=== PATIENT | female | born 1955 | race Caucasian/White ===

== ENCOUNTER 2017-01-06 11:58 | Inpatient (IN) | payer MEDICARE ==
--- NOTE | ~2017-01-06 | PR ---
[place], [place] PROGRESS NOTE NAME: NEVAEH NOLEN UNIT #: [id number] ROOM: 312 DOCTOR: LULU VARGAS MD BIRTHDATE: [birth year] DOS: 01/20/2017 CHIEF COMPLAINT: "Dr. Vargas, I didn't sleep at all." SUMMARY OF THE VISIT: The patient was interviewed in the dining area. She sat in a Jessica chair eating her breakfast. She was quiet during the entire time I interacted with other residents; however, as I approached her, she began to call out. This time, though very softly, but nonetheless call out stating that she did not sleep and is not feeling well. Nurses report that she slept approximately 8 hours. She though did have a poor day yesterday as she was much more loud and yelling out and was harder to redirect. She was not able to receive the Risperdal Consta dose due to lack of availability. MENTAL STATUS: She is alert and oriented with significant time gaps. Mood does seem to be somewhat better. There is still lability noted. There is no auditory or visual hallucinations noted. Short term memory has gaps, otherwise she is intact. PLAN: At this point in time, I am going to go ahead and switch her from Risperdal Consta to Invega Sustenna. This will require less injections overall and is slightly more potent with less potential side effects. I will then discontinue Risperdal Consta in lieu of Invega Sustenna 234 mg IM today. Plan to do a secondary loading dose next week and engage in individual and leblanc milieu activity with the plan to return to [facility] when stable. LULU VARGAS MD CM:PNTRANS LULU VARGAS MD 01/20/1744 interface
--- NOTE | ~2017-01-06 | PR ---
[place], [place] PROGRESS NOTE NAME: NEVAEH NOLEN UNIT #: [id number] ROOM: 312 DOCTOR: LLUU STACY MD BIRTHDATE: [birth year] DOS: 01/15/2017 INTERVAL NOTE CHIEF COMPLAINT: "Oh Dr. Stacy, they are breaking my knee caps, they are going to push me down on the floor, they are going to choke me." SUMMARY OF THE VISIT: The patient was interviewed in her room. She was resting in bed but awake. Tears were noted at the edges of her eyes. Upon approach, she became very agitated and anxious with multiple complaints of paranoia. Attempts to redirect were only met with her further escalating and becoming even more hysterical. The patient did report that she did not sleep last night, which is in melendrez contrast to previous nights. MENTAL STATUS: She is alert and oriented to person, place, and approximate to time. Mood does seem to be very labile. Affect is inappropriate. There is a great deal of psychosis and mood lability noted. Memory has gaps. PLAN: Most recently, I discontinued the Remeron in lieu of Trintellix, which seems to have adversely affected her sleep pattern. Also, she had done better on higher dose Ativan than she did on the lower dose. I will go ahead and discontinue Trintellix and put her back on the Remeron 15 mg at bedtime. Rather than utilizing Ativan as a short-acting benzodiazepine, I will discontinue it and start Klonopin 1 mg t.i.d. to act as a mood stabilizer and anti-anxiety agent and to also aid sleep. We will engage her in individual and leblanc milieu activity as much as possible returning to [facility] when stable. LULU STACY MD CM:PNTRANS [phone] LULU STACY MD 01/15/17 1115 interface
--- NOTE | ~2017-01-06 | PR ---
[place], [place] PROGRESS NOTE NAME: NEVAEH NOLEN UNIT #: [id number] ROOM: 312 DOCTOR: LULU STACY MD BIRTHDATE: [birth year] DOS: 01/13/2017 CHIEF COMPLAINT: "I'm sleepy, help me doctor." SUMMARY OF THE VISIT: The patient was interviewed as she actually laid in bed. This is the first time in days that I have actually seen her lying in bed. She reported that she is very tired but still has some delusional symptoms present complaining that people are out to get her, will smother her or poison her. She has taken at least 3 doses of the Risperdal without incident and I do believe I have had her on Risperdal in the past while a resident of [facility]. Given the fact that she is still as episodically noncompliant with oral medication, I will go ahead and initiate Decanoate prep at this time. MENTAL STATUS: She is alert and oriented with significant time gaps. Mood still is labile. Affect is inappropriate. She is anxious and fretful and very delusional. Memory has significant gaps. PLAN: I will discontinue the Risperdal to half as this is just yet another medication for her to refuse. I will load with Risperdal Consta 25 mg IM now and every 2 weeks, monitor for risk, benefit, engage in individual and leblanc milieu activity with the plan to return to [facility] when psychiatrically stable. LULU STACY MD CM:PNTRANS [id number] LULU STACY MD 01/13/17 1027 interface
--- NOTE | ~2017-01-06 | PR ---
[place], [place] PROGRESS NOTE NAME: NEVAEH NOLEN UNIT #: [id number] ROOM: 312 DOCTOR: LULU STACY MD BIRTHDATE: [birth year] DOS: 01/11/2017 CHIEF COMPLAINT: "I am afraid they are going to choke me and kill me." SUMMARY OF THE VISIT: The patient was interviewed once again as she sat in the quiet room in her Jessica chair. Upon approach, she engaged at first in normal conversation and then eventually trailed into very winning near tearful conversation; however, she did redirect more easily and was able to be brought back into normal conversation more rapidly. She continues to be markedly delusional and paranoid and believes that staff and other patients here are going to hurt her. They will smother her or cause her to choke on her food or medications. As mentioned previously, she began to cry, but very quickly stopped and was able to reengage. Nurses' report; however, she is episodically noncompliant with her medicines and has not been consistently taking her Vraylar. MENTAL STATUS: She is alert and oriented with time gaps. Mood does seem to be somewhat trending towards improvement. Affect at times is more appropriate, although she makes is this with very inappropriate affect and behavior. She remains grossly delusional and paranoid. Memory has gaps. PLAN: Given the fact that she is episodically noncompliant with the Vraylar, I will discontinue it in lieu of Risperdal M-Tab 1 mg twice daily. I will instruct the staff that they may mix this with some type of fluid. Once I know she is tolerating this well, I will go ahead and start loading her with either Risperdal Consta or Invega Sustenna. I will increase her Exelon patch from 9.5 mg daily to 13.3 mg daily in order to maximize potential benefits. We will continue to engage her in individual and leblanc milieu activity with the ultimate plan to return back to [facility] when psychiatrically stable. LULU STACY MD CM:PNTRANS [id number] LULU STACY MD 01/11/17 0953 interface
--- NOTE | ~2017-01-06 | DS ---
[place], [place] DISCHARGE SUMMARY [id number] #: [id number] ROOM: 312 DOCTOR: LULU STACY MD BIRTHDATE: [birth year] DOS: 01/21/2017 CHIEF COMPLAINT: "Morning." HISTORY OF PRESENT ILLNESS: This is a 61-year-old white female, who is well known to me from her extended stay at [facility] in [place], [place]. The patient is admitted now to the [facility] due to a significant alteration in her mental status including severe agitation and aggression. The patient has a lengthy history of schizoaffective disorder and has had multiple medications adjustment during her lengthy stay at [facility]. She now is reporting extreme hallucinations and mood lability. She has been very volatile and agitated. She has been throwing things around and been physically aggressive toward staff and other residents. Because of this severe change in her behavior and significant psychosis, it was felt that inpatient stabilization was warranted. PAST MEDICAL HISTORY: Remarkable for diabetes, hypertension, osteoporosis, history of frequent UTIs, and a lengthy psychiatric history. SUMMARY OF HOSPITAL COURSE: The patient was admitted to the unit where her medication regimen was revised. Her Depakote and Nuedexta were discontinued as was Zyprexa. Exelon capsules were switched to Exelon patch. She was started on Vraylar 1.5 mg at bedtime. During the early part of her stay, it was characterized by her excessive yelling and irritability. Attempts to redirect were met with her further becoming agitated and aggressive. She was also episodically noncompliant with her medication making management very difficult. She often would require p.r.n. intervention and then have only brief benefit from this. Because of her lack of compliance, the Vraylar was stopped and she was started on Risperdal M-Tab. After tolerating several doses of the Risperdal M-Tab, she was loaded with Risperdal Consta 25 mg IM. This did seem to have a positive effect on her as did the initiation of Klonopin. Klonopin was started at a dose of 0.5 in the morning and 1 mg at night and gradually increased and adjusted to where it was 0.5 twice a day and 3 mg at bedtime. The 3 mg at bedtime dose did seem to significantly impact positively on her sleep patterns. Additionally, it did seem to calm her because she required a great deal of support and redirection and with the Klonopin on board, this was required much less. She tolerated this medication regimen well, but still continued to have excessive mood lability and inappropriate behavior. Efforts were made to try to reload her with some Risperdal, but due to its lack of availability, this was not done. Instead, it was decided that she would benefit from Invega Sustenna given the fact that the injections were less frequent and the potency was greater. She was given Invega Sustenna 234 mg IM and monitored over the next 24 hours for risk and benefits. She exhibited no extrapyramidal symptoms, tardive dyskinesia, sedation or somnolence from the Invega Sustenna. At this point in time, she did seem to be markedly improved from admission and it was felt that she could return back to [facility] where both Russ Toscano, nurse practitioner and myself will follow her. MENTAL STATUS AT DISCHARGE: The patient was alert and oriented to person, place and very approximate to time. Mood was strongly trending towards euthymia. Affect was much more appropriate. She was much more redirectable. She was no [place], [place] DISCHARGE SUMMARY NAME: NEVAEH NOLEN UNIT #: [id number] ROOM: 312 DOCTOR: LULU STACY MD BIRTHDATE: [birth year] longer yelling out or agitated. Well she complained of certain items, she redirected more readily. There was no hypomania or william. There is no overt auditory or visual hallucinations. No command hallucinations. No voiced delusions or paranoia. Memory for short term events had some gaps. Otherwise, she was fairly well intact. DIAGNOSES: Schizoaffective disorder and Alzheimer's dementia, early onset. PLAN: All of her prescriptions have been escribed to [facility]. Klonopin has been printed and will be sent with her. I will follow her upon her return to [facility]. LULU STACY MD CM:DISCHARG 9 7 LULU STACY MD 01/21/17917 interface
--- NOTE | ~2017-01-06 | PR ---
[place], [place] PROGRESS NOTE NAME: NEVAEH NOLEN UNIT #: [id number] ROOM: 312 DOCTOR: LULU STACY MD BIRTHDATE: [birth year] DOS: 01/19/2017 CHIEF COMPLAINT: "Dr. Stacy, come help me." SUMMARY OF THE VISIT: The patient was interviewed in her room. She was resting quietly in bed. As I was talking to a male patient in the mike, she did quietly call out to me, but when I put my hand up to signal her to stop, she very quickly redirected herself and stopped. Even when I entered her room and engaged her in conversation, she did continue to complain of not sleeping, continuing not to feel well, but it was a very subdued, soft, quiet response and not the hysterical screaming that she had done previously. Nurses report that yesterday she had a very good day and for the most part engaged in groups and therapy well without the whining and screaming that she had been doing so frequently. She does seem to be tolerating the current medication regimen well. MENTAL STATUS: She is alert and oriented to person, place, and approximate to time. Mood does seem to be trending towards euthymia. Affect is more appropriate. There is still some mood lability noted, but she is redirectable. There are no overt auditory or visual hallucinations, although she voices that she is experiencing these. Memory is fairly well intact. PLAN: I will go ahead and load her with another 12.5 mg of Risperdal Consta today and change the order for the Risperdal Consta to be 37.5 mg IM starting on 02/01/2017 and every 14 days thereafter. I may consider switching her from Risperdal Consta to Invega Sustenna so that she has less frequent injections. We will continue to engage her in individual and leblanc milieu activity, returning to [facility] when psychiatrically stable. LULU STACY MD CM:PNTRANS [id number] LULU STACY MD 01/19/17 1025 interface
--- NOTE | ~2017-01-06 | PR ---
[place], [place] PROGRESS NOTE NAME: NEVAEH NOLEN UNIT #: [id number] ROOM: 312 DOCTOR: WATSON PINA RUSS BIRTHDATE: [birth year] DOS: 01/16/2017 CHIEF COMPLAINT: "Russ, I am not sleeping. I needed Ativan." SUMMARY OF VISIT: The patient was assessed in the dining room, where she immediately started calling my name out as soon as I entered the dining room, even though I was assessing other patients. Once I turned my attention to her, she was telling me that she has not slept since she has been here. This is not true. She has been sleeping actually quite well. She asked for Ativan since she has been on Ativan for quite some time. We have just recently changed her over to Klonopin. She is a little bit more agitated, anxious today. MENTAL STATUS: Alert and oriented to person, place, approximate time. Mood still labile. Affect is inappropriate. No auditory or visual hallucinations, delusions, paranoia, william or hypomania, mood lability continued at times, however. PLAN: We did discontinue her Ativan yesterday and put her on Klonopin 1 mg t.i.d. I am going to go ahead and keep the Klonopin at 1 mg once in the morning and once in the afternoon and then increase the nighttime dose to 2 mg to try to aid in sleep, but also act as an antianxiety medication with longer half-life. We will continue to try to engage in individual and leblanc milieu therapy with the plan to discharge back to [facility] once stable. RUSS PINA CNP CM:PNTRANS [phone] [id number] WATSON PINA 01/16/17 110 interface
--- NOTE | ~2017-01-06 | WRIGHTHP ---
[place], [place] PATIENT HISTORY AND PHYSICAL EXAM NAME: NEVAEH NOLEN UNIT #: [id number] ROOM: 312 DOCTOR: LULU STACY MD BIRTHDATE: [birth year] DOS: 01/07/2017 CHIEF COMPLAINT: "Morning." HISTORY OF PRESENT ILLNESS: This is a 61-year-old white female who is well known to me from her extended stay at [facility] in [place], [place]. The patient is admitted now due to an alteration in her mental status including severe agitation and aggression. The patient has a lengthy history of schizoaffective disorder and has had multiple medication adjustments during her period of time at [facility]. She reports now extreme hallucinations and mood lability and in fact, upon admission was found to be very volatile and agitated. She has been throwing things around. She has been physically aggressive toward staff attempts to redirect have only led to her becoming increasingly more agitated and aggressive. PAST MEDICAL HISTORY: Remarkable for diabetes, hypertension, osteoporosis, history of UTIs and a lengthy history of psychiatric issues. MENTAL STATUS: The patient is alert and oriented to self. She initially engaged in conversation and then very quickly became selectively mute. Attempts to re-engage her were met with her refusing to speak. DIAGNOSIS: Schizoaffective disorder. PLAN: The patient is on a plethora of medications and intends to pick and choose which one she wants to take. Given this fact, I am going to dramatically simplify it. I will discontinue Depakote given the fact that her blood level is markedly subtherapeutic. I will discontinue straight Atarax, discontinue Nuedexta, discontinue Zyprexa, switch Exelon capsules to Exelon patch 9.5 mg a day to improve compliance and start her on Vraylar 1.5 mg at bedtime. I will attempt as much as we can to simplify things so we are offering her less oral medications. I may consider ultimately adding some type of long-acting decanoate prep to help with her mood lability and agitation. We will attempt to engage her in individual and leblanc milieu activity with the ultimate plan to return to [facility] when stable. [place], [place] PATIENT HISTORY AND PHYSICAL EXAM NAME: NEVAEH NOLEN UNIT #: [id number] ROOM: [facility] DOCTOR: LULU STACY MD BIRTHDATE: [birth year] LULU STACY MD CM:HISPHYS:PATIENT HISTORY AND PHYSICAL EXAMINATION [id number] LULU STACY MD 01/07/17 1019 interface
--- NOTE | ~2017-01-06 | PR ---
[place], [place] PROGRESS NOTE NAME: NEVAEH NOLEN UNIT #: [id number] ROOM: 312 DOCTOR: WATSON PINA BIRTHDATE: [birth year] DOS: 01/10/2017 CHIEF COMPLAINT: "Good morning, Russ" SUMMARY OF VISIT: The patient was assessed in the 24-hour observation room. She is in stable condition. She immediately recognized me upon entering the room. She was pleasant. She engaged in conversation. Her affect can be flat and blunted, but this is her baseline. She is overall doing exceedingly better than she had been upon admission. Dr. Vargas did increase her Ativan to 1 mg q.8 hours. We were wondering if her underlying behaviors were anxiety driven. MENTAL STATUS: She is alert and oriented to person, place, approximate time. Mood trending towards euthymic with some anxious overtones. Affect is flat and blunted, but this is her baseline. No overt signs of auditory or visual hallucinations, delusions, paranoia, william, or hypomania. She does have some memory deficits. PLAN: We are going to continue with the Ativan 1 mg q.8 hours. The Vraylar is being titrated. She is also on Artane and Depakote along with her Exelon and vitamin D. We will continue with the current meds as is, was monitored for over sedation, but also better control of her anxiety, and we will continue to adjust medications accordingly. We will need also do a followup valproic acid level, the last one was done on the 01/07/2017, it was 29.9, which is subtherapeutic. I will go ahead and order one for tomorrow. that were trending up and she is compliant with her medications. RUSS PINA CNP CM:ALEX [id number] WATSON PINA 01/10/17 0950 interface
--- NOTE | ~2017-01-06 | PR ---
[place], [place] PROGRESS NOTE NAME: NEVAEH NOLEN UNIT #: [id number] ROOM: 312 DOCTOR: LULU VARGAS MD BIRTHDATE: [birth year] DOS: 01/12/2017 CHIEF COMPLAINT: "Oh Dr. Vargas, they are going to smother me, they are going to kill me." SUMMARY OF THE VISIT: The patient was interviewed as she reclined in her Jessica chair in the quiet room. She initially was very quiet, but did engage in superficial conversation and then quickly relapsed into increased hysteria and paranoia. Nurses report that she has been episodically noncompliant with her medicines. In fact, her Depakote level remains grossly subtherapeutic because of her lack of cooperation. MENTAL STATUS: She remains alert and oriented to person, place, but not necessarily time. Mood is labile. Affect is inappropriate. She remains grossly psychotic. PLAN: Given the fact that the patient has not been eating or drinking consistently. I will check a CBC with diff and a CMP now and also a UA. I will attempt to lessen her medicines, decreasing the Artane from 5 mg twice a day to 2 mg 3 times a day. I will also lower the Ativan to 0.5 mg 4 times a day. Given the fact that she is not taking the Depakote routinely, I will just go ahead and discontinue this altogether and renew her p.r.n. Ativan should she need it. We will attempt to engage her in individual and leblanc milieu activity with the plan then to return to [facility] when psychiatrically stable. LULU VARGAS MD CM:PNTRANS 0955 LULU VARGAS MD 01/12/17 0956 interface
--- NOTE | ~2017-01-06 | PR ---
[place], [place] PROGRESS NOTE NAME: NEVAEH NOLEN UNIT #: [id number] ROOM: 312 DOCTOR: WATSON PINA BIRTHDATE: [birth year] DOS: 01/17/2017 CHIEF COMPLAINT: "Good morning." SUMMARY OF VISIT: The patient was assessed in the dining room. I initially continue to assess her while I was talking to other patients. At that time, she was feeding herself, calm, collected, fine. Once I approached her, she stopped feeding herself, started complaining that she was not sleeping. Unfortunately, this is the patient's MO. She is very behavioral when she is talking to 1:1. The nurses noted that she is sleeping better and she seems much more calm today since I increased her nighttime dose of Klonopin. MENTAL STATUS: Alert and oriented to person, place, approximate time. Mood is still labile, but improving. Affect, it can be inappropriate, but mostly under direct supervision. No overt signs of auditory or visual hallucinations, delusions, paranoia, william or hypomania. PLAN: I think she is doing much better on the increased doses of the Klonopin. I am going keep her where she is at. Continue to engage in individual and leblanc milieu therapy with the plan to discharge soon. CARLOS PINA CNP CM:PNTRANS [phone] WATSON PINA 01/17/17 1501 interface
--- NOTE | ~2017-01-06 | PR ---
[place], [place] PROGRESS NOTE NAME: NEVAEH NOLEN UNIT #: [id number] ROOM: 312 DOCTOR: LULU STACY MD BIRTHDATE: [birth year] DOS: 01/14/2017 CHIEF COMPLAINT: "Can I stay in bed all day." SUMMARY OF THE VISIT: The patient was interviewed as she rested quietly in bed. She had just had blood work drawn and was lying quietly there. She stated that she did not want to get up for breakfast and did not even want me to have her breakfast brought to her, she was fixated on having knee pain stating that they had bumped her knee and that it was very sore and she also was fixated on staying in bed the entire day. I did redirect and suggest that eventually she would need to get dressed and get ready to go to groups. She did not resist this. There was no whining, there was no crying, and there was no hysterical behavior. The patient did receive her loading dose of Risperdal Consta yesterday and seems to be tolerating it well. I see no extrapyramidal symptoms, tardive dyskinesia, sedation, somnolence, or any other side effect. MENTAL STATUS: She remains alert and oriented with some gaps. Mood does seem to be trending towards euthymia and affect is much more appropriate. There is still residual psychosis noted; however, this seems to be improving. Short term memory has gaps, otherwise she is intact. PLAN: I will discontinue Remeron in lieu of Trintellix 10 mg daily. My hope is that the Trintellix would be more active aiding for her and also improve her cognitive and concentration. We will continue to engage her in individual and leblanc milieu activity. Continue to monitor for risks, benefits from the medications, ultimately returning to [facility] when psychiatrically stable. LULU STACY MD CM:PNTRANS 7 LULU STACY MD 01/14/1738 interface
[~2017-01-06 11:58] MED LIST: ACETAMINOPHEN325 M2 PO; ALUM-MAG HYDRO360 ML PO; AQUAPHOR1 OI1 TP; ARTANE5 M1 PO; ASPIRIN ADULT L81 M2 PO; ATENOLOL25 MG PO; COGENTIN0.5 MG PO; DEPAKOTE DR500 MG PO; DRISDOL50000 IU PO; DULCOLAX10 M1 RC; DUODERM1 EACH T; DUONEB 3 MG/3 ML3 M1 INH; Depakote Sprin125 MG PO; EXELON3 MG PO; FUROSEMIDE40 MG PO; Fleet Adult Enem1 EA R; KLOR-CON M2020 ME1 PO; LORAZEPAM0.5 MG PO; MILK OF MA400 MG/51 PO; MIRALAX POWDER255 G1 PO; MIRTAZAPINE15 M2 PO; MULTIPLE VITAMI1 TA3 PO; Mysoline50 MG PO; NAMENDA-28 PO; NEURONTIN300 MG PO; PRIMIDONE50 MG PO; SENNA S PO; TRAMADOL HCL50 MG PO; ZYPREXA15 M1 PO
[2017-01-06] MEDS ORDERED: VITAMIN D50000 I3 PO (13:58)
[2017-01-06] MEDS ORDERED: FUROSEMIDE40 MG PO (14:01)
[2017-01-06] MEDS ORDERED: IMODIUM A-D2 M3 PO (14:05)
[2017-01-06] MEDS ORDERED: LYRICA50 M1 PO (14:06)
[2017-01-06] MEDS ORDERED: NEUDEXT PO (14:11)
[2017-01-06] MEDS ORDERED: ZYPREXA10 M1 PO (14:13)
[2017-01-06] MEDS ORDERED: CHOLESTYRAMINE P4 GM PO (14:15)
[2017-01-06] MEDS ORDERED: REMERON30 M1 PO (14:17)
[2017-01-06] MEDS ORDERED: RIVASTIGMINE TAR3 M1 PO (14:19)
[2017-01-06] MEDS ORDERED: CIPRO500 MG PO (14:28)
[2017-01-06] MEDS ORDERED: HALDOL5 MG PO (14:29)
[2017-01-06] MEDS ORDERED: VISTARIL25 MG PO (14:29)
[2017-01-06] MEDS ORDERED: VISTARIL50 MG PO (14:30)
[2017-01-06] MEDS ORDERED: ARTIFICIAL TEA1 EACH OP (14:41)
[2017-01-06 15:28] VITALS: BP 153/78
[2017-01-06 15:53] VITALS: BP 153/78
[2017-01-06 20:00] VITALS: BP 158/78
[2017-01-07 06:28] LABS: BASO # 0.1 10*3/uL (0.0-0.1); BASO % 1.2 % (0.0-1.0); EOS # 0.2 10*3/uL (0.0-0.4); EOS % 2.6 % (1.0-4.0); HEMATOCRIT 43.2 % (37.0-47.0); HEMOGLOBIN 14.6 g/dl (12.0-16.0); LYMPH # 2.2 10*3/uL (1.3-4.4); LYMPH % 24.9 % (27.0-41.0); MEAN CELL VOLUME 92.9 fl (81.0-99.0); MEAN CORPUSCULAR HGB 31.4 pg (27.0-31.0); MEAN CORPUSCULAR HGB CONC 33.8 g/dl (33.0-37.0); MONO # 1.4 10*3/uL (0.1-1.0); MONO % 16.1 % (3.0-9.0); NEUT # 4.8 10*3/uL (2.3-7.9); NEUT % 54.9 % (47.0-73.0); PLATELET COUNT AUTOMATED 187 10*3/uL (130-400); RED BLOOD COUNT 4.65 10*6/uL (4.10-5.10); RED CELL DISTRI WIDTH 13.6 % (0-14.5); WHITE BLOOD COUNT 8.8 10*3/uL (4.8-10.8)
[2017-01-07 06:59] LABS: ALBUMIN 3.4 gm/dl (3.1-4.5); BILIRUBIN, TOTAL 0.7 mg/dl (0.2-1.0); BUN 9 mg/dl (7-24); CARBON DIOXIDE 26 mmol/L (21-32); CHLORIDE 94 mmol/L (98-107); EST GLOM FILT AFRICAN AMERICAN > 60 ml/min; GLUCOSE 75 mg/dL (65-99); POTASSIUM 3.9 mmol/L (3.5-5.1); SGOT/AST 32 IU/L (3-35); SGPT/ALT 31 U/L (12-78); SODIUM 132 mmol/L (136-145); TOTAL PROTEIN 7.3 gm/dL (6.4-8.2)
[2017-01-07 07:12] LABS: ALKALINE PHOSPHATASE 76 U/L (45-117)
[2017-01-07 07:41] LABS: VITAMIN D, 25-HYDROXY 26.9 ng/mL (30-100)
[2017-01-07 07:42] LABS: FOLIC ACID 13.29 ng/mL (>5.38)
[2017-01-07 08:05] VITALS: BP 139/76
[2017-01-07 20:00] VITALS: BP 146/75
[2017-01-08 08:17] VITALS: BP 141/88
[2017-01-08 20:43] VITALS: BP 133/78
[2017-01-09 08:18] VITALS: BP 154/62
[2017-01-10 08:03] VITALS: BP 148/98
[2017-01-10 19:00] VITALS: BP 115/56
[2017-01-11 08:08] VITALS: BP 117/78
[2017-01-11 19:52] VITALS: BP 137/77
[2017-01-12 07:48] VITALS: BP 150/86
[2017-01-12 10:19] LABS: HEMATOCRIT 52.1 % (37.0-47.0); HEMOGLOBIN 17.6 g/dl (12.0-16.0); MEAN CELL VOLUME 93.9 fl (81.0-99.0); MEAN CORPUSCULAR HGB 31.7 pg (27.0-31.0); MEAN CORPUSCULAR HGB CONC 33.8 g/dl (33.0-37.0); MEAN PLATELET VOLUME 10.6 fl (9.6-12.3); PLATELET COUNT AUTOMATED 214 10*3/uL (130-400); RED BLOOD COUNT 5.55 10*6/uL (4.10-5.10); RED CELL DISTRI WIDTH 13.7 % (0-14.5); WHITE BLOOD COUNT 12.3 10*3/uL (4.8-10.8)
[2017-01-12 10:40] LABS: BASOPHIL # 0.1 10*3/uL (0-0.1); BASOPHILS 1 % (0-1); LYMPHOCYTE # 2.2 10*3/uL (1.3-4.4); MONOCYTE # 1.7 10*3/uL (0.1-1.0); NEUTROPHIL # 8.2 10*3/uL (2.3-7.9); NEUTROPHILS 67 % (47-73); PLATELET SUFFICIENCY NORMAL (NORMAL); TOTAL CELLS COUNTED 100 #CELLS
[2017-01-12 10:54] LABS: ALBUMIN 3.6 gm/dl (3.1-4.5); BILIRUBIN, TOTAL 1.1 mg/dl (0.2-1.0); BUN 33 mg/dl (7-24); CARBON DIOXIDE 18 mmol/L (21-32); CHLORIDE 111 mmol/L (98-107); EST GLOM FILT AFRICAN AMERICAN > 60 ml/min; GLUCOSE 95 mg/dL (65-99); POTASSIUM 4.7 mmol/L (3.5-5.1); SGOT/AST 23 IU/L (3-35); SGPT/ALT 29 U/L (12-78); SODIUM 146 mmol/L (136-145); TOTAL PROTEIN 8.4 gm/dL (6.4-8.2)
[2017-01-12 10:56] LABS: ALKALINE PHOSPHATASE 78 U/L (45-117)
[2017-01-12 12:11] LABS: BILIRUBIN 2+ (NEGATIVE); BLOOD NEGATIVE (NEGATIVE); CLARITY CLOUDY (CLEAR); COLOR YELLOW (YELLOW); GLUCOSE NEGATIVE (NEGATIVE); KETONE 2+ (NEGATIVE); LEUKO ESTERASE TRACE (NEGATIVE); NITRITE NEGATIVE (NEGATIVE); PH 5.5 (5.0-9.0); PROTEIN TRACE (NEGATIVE); SPECIFIC GRAVITY 1.025 (1.005-1.030)
[2017-01-12 12:46] LABS: BACTERIA 1+; MUCOUS 2+; URINE REFLEX COMMENT YES (NO)
[2017-01-12 19:56] VITALS: BP 141/77
[2017-01-12 19:58] VITALS: BP 141/77
[2017-01-13 07:48] VITALS: BP 119/67
[2017-01-13 19:50] VITALS: BP 115/72
[2017-01-14 08:00] VITALS: BP 110/65
[2017-01-14 09:05] LABS: BASO # 0.1 10*3/uL (0.0-0.1); BASO % 1.1 % (0.0-1.0); EOS # 0.4 10*3/uL (0.0-0.4); EOS % 3.6 % (1.0-4.0); MEAN CELL VOLUME 94.4 fl (81.0-99.0); MEAN CORPUSCULAR HGB 31.5 pg (27.0-31.0); MEAN CORPUSCULAR HGB CONC 33.3 g/dl (33.0-37.0); MEAN PLATELET VOLUME 11.4 fl (9.6-12.3); MONO # 1.1 10*3/uL (0.1-1.0); MONO % 10.9 % (3.0-9.0); NEUT # 5.4 10*3/uL (2.3-7.9); PLATELET COUNT AUTOMATED 180 10*3/uL (130-400); RED BLOOD COUNT 4.64 10*6/uL (4.10-5.10); RED CELL DISTRI WIDTH 13.5 % (0-14.5); WHITE BLOOD COUNT 10.1 10*3/uL (4.8-10.8)
[2017-01-14 09:06] LABS: HEMATOCRIT 43.8 % (37.0-47.0); HEMOGLOBIN 14.6 g/dl (12.0-16.0)
[2017-01-14 20:36] VITALS: BP 117/58
[2017-01-15 08:00] VITALS: BP 113/68
[2017-01-16 07:47] VITALS: BP 100/64
[2017-01-16 08:45] LABS: BUN 21 mg/dl (7-24); CARBON DIOXIDE 23 mmol/L (21-32); CHLORIDE 109 mmol/L (98-107); EST GLOM FILT AFRICAN AMERICAN > 60 ml/min; GLUCOSE 77 mg/dL (65-99); POTASSIUM 4.3 mmol/L (3.5-5.1); SODIUM 144 mmol/L (136-145)
[2017-01-16 19:34] VITALS: BP 121/64
[2017-01-17 07:12] VITALS: BP 112/58
[2017-01-17 20:29] VITALS: BP 115/62
[2017-01-18 07:01] VITALS: BP 110/63
[2017-01-18 19:59] VITALS: BP 119/69
[2017-01-19 08:33] VITALS: BP 116/51
[2017-01-19 20:00] VITALS: BP 120/62
[2017-01-20 09:02] VITALS: BP 102/60
[2017-01-20 20:00] VITALS: BP 110/63
[2017-01-21 07:47] VITALS: BP 105/52
[2017-01-21] MEDS ORDERED: CLONAZEPAM0.5 M2 PO (08:14)
[2017-01-21] MEDS ORDERED: MIRTAZAPINE15 M2 PO (08:14)
[2017-01-21] MEDS ORDERED: CLONAZEPAM1 MG PO (08:14)
[2017-01-21] MEDS ORDERED: INVEGA SUSTENN234 MG IM (08:14)
[2017-01-21] MEDS ORDERED: VITAMIN D50000 I3 PO (08:14)
[2017-01-21] MEDS ORDERED: MEMANTINE HCL10 MG PO (08:14)
[2017-01-21] MEDS ORDERED: EXELON13.3 MG/21 T (08:14)
[2017-01-21] MEDS ORDERED: TRIHEXYPHENIDYL2 M3 PO (08:14)
[2017-01-21] MEDS ORDERED: FUROSEMIDE40 MG PO (09:53)
== END 2017-01-21 11:27 | disposition other institution (70) | DRG 57 ==
LOC: 3N 11:58
PROVIDERS: Internal Medicine; Psychiatry & Neurology Psychiatry
DX: G30.9 Alzheimer's disease, unspecified (principal); L89.159 Pressure ulcer of sacral region, unspecified stage; E11.49 Type 2 diabetes mellitus with other diabetic neurological complication; F20.0 Paranoid schizophrenia; F02.80 Dementia in other diseases classified elsewhere, unspecified severity, without behavioral disturbance, psychotic disturbance, mood disturbance, and anxiety; I10 Essential (primary) hypertension; M81.0 Age-related osteoporosis without current pathological fracture; S92.911A Unspecified fracture of right toe(s), initial encounter for closed fracture; F31.9 Bipolar disorder, unspecified; X58.XXXA Exposure to other specified factors, initial encounter; Y93.89 Activity, other specified; Y92.89 Other specified places as the place of occurrence of the external cause; Y99.8 Other external cause status; Z87.01 Personal history of pneumonia (recurrent); Z79.899 Other long term (current) drug therapy